=== PATIENT | male | born 1980 | race African-American/Black ===

== ENCOUNTER 2019-01-14 08:36 | Emergency (ER) | payer BC, OTHER ==
[2019-01-14 08:44] VITALS: PULSE 83; TEMP 98.4; BMI 25.1
--- NOTE | 2019-01-14 09:10 | PDOC ---
History of Present Illness - General History Source: Patient Exam Limitations: No Limitations <Afia Maddox - Last Filed: 01/14/19 09:51> <Kenrick Palomino - Last Filed: 01/14/19 14:18> - General Chief Complaint: Chest Pain Stated Complaint: CHEST PAIN Time Seen by Provider: 01/14/19 09:09 - History of Present Illness Initial Comments: 01/14/19 09:52 Patient is a 38 year old male with no significant past medical history who presents with chest pain, squeezing in character, lasting for the past 4 days, pleuritic, constant, 5/10, initially associated left neck and arm pain (now resolved). Patient notes his symptoms initially onset after smoking marijuana ( prior to 3 days ago smoked daily) and he has not not experienced similar episodes in the past, prompting his arrival to the emergency department. (Afia Maddox) Past History <Afia Maddox - Last Filed: 01/14/19 09:51> - Past Medical History COPD: No - Suicide/Smoking/Psychosocial Hx Smoking History: Former smoker Have you smoked in the past 12 months: No If you are a former smoker, when did you quit?: 2 years ago Information on smoking cessation initiated: No <Kenrick Palomino - Last Filed: 01/14/19 14:18> - Past Medical History Allergies/Adverse Reactions: Allergies Allergy/AdvReac Type Severity Reaction Status Date / Time No Known Allergies Allergy Verified 01/14/19 08:51 Home Medications: Ambulatory Orders NK [No Known Home Medication] 01/14/19 Review of Systems - Review of Systems Able to Perform ROS?: Yes All Other Systems: Reviewed and Negative <Afia Maddox - Last Filed: 01/14/19 09:51> <Kenrick Palomino - Last Filed: 01/14/19 14:18> - Review of Systems Comments:: 01/14/19 09:52 CONSTITUTIONAL: No fever, no chills, no fatigue EYES: No visual changes ENT: No ear pain, no sore throat CARDIOVASCULAR: +Chest pain. No palpitations RESPIRATORY: No cough, no SOB GI: No abdominal pain, no nausea, no vomiting, no constipation, no diarrhea GENITOURINARY: No dysuria, no frequency, no hematuria MUSKULOSKELETAL: No back pain, no joint pain, no myalgias SKIN: No rash NEURO: No headache (Afia Maddox) *Physical Exam <Afia Maddox - Last Filed: 01/14/19 09:51> <Kenrick Palomino - Last Filed: 01/14/19 14:18> - Vital Signs Last Vital Signs Temp Pulse Resp BP Pulse Ox 98.4 F 83 18 140/80 98 01/14/19 08:43 01/14/19 08:43 01/14/19 08:43 01/14/19 08:43 01/14/19 08:43 - Physical Exam Comments: 01/14/19 09:52 CONSTITUTIONAL: Well-appearing; well-nourished; in no apparent distress HEAD: Normocephalic; atraumatic EYES: PERRL; EOM intact ENMT: External appears normal; normal oropharynx NECK: Supple; non-tender; no cervical lymphadenopathy CARD: Normal S1, S2; no murmurs, rubs, or gallops RESP: Normal chest excursion with respiration; breath sounds clear and equal bilaterally; no wheezes, rhonchi, or rales ABD: Soft, non-distended; non-tender; no palpable organomegaly, no palpable hernias EXT: Normal ROM in all four extremities; non-tender to palpation; distal pulses intact SKIN: Warm, dry, no rash NEURO: No focal neurological deficiencies. (Afia Maddox) Heart Score/ECG Review - History History: Slightly suspicious - Electrocardiogram EKG: Normal - Age Age: </= 45 - Risk Factors Risk Factors Heart Score: No Hx Hypercholesterolemia, No Hx Hypertension, No Hx Diabetes, No Smoking History, No Positive family hx of cardiac disease, No Hx Obesity Based on the list above the patient has:: No risk factors known - Troponin Troponin: </= normal limit - Score Heart Score - Total: 0 <Kenrick Palomino - Last Filed: 01/14/19 14:18> ED Treatment Course - LABORATORY CBC & Chemistry Diagram: 01/14/19 09:45 01/14/19 09:45 <Kenrick Palomino - Last Filed: 01/14/19 14:18> - ADDITIONAL ORDERS Additional order review: Laboratory Results 01/14/19 01/14/19 01/14/19 12:51 09:45 09:45 D-Dimer 443 Sodium 139 Potassium 4.1 Chloride 108 H Carbon Dioxide 23 Anion Gap 7 L BUN 9 Creatinine 0.9 Creat Clearance w eGFR 93.46 Random Glucose 76 Calcium 8.7 Total Bilirubin 0.4 AST 21 ALT 14 Alkaline Phosphatase 73 Creatine Kinase 325 H 368 H Creatine Kinase Index 0.5 0.5 CK-MB (CK-2) 1.8 1.9 Troponin I < 0.02 < 0.02 Total Protein 7.7 Albumin 3.9 01/14/19 09:45 RBC 4.56 MCV 88.9 MCHC 34.3 RDW 13.8 MPV 9.4 Neutrophils % 60.7 Lymphocytes % 27.3 Monocytes % 9.8 Eosinophils % 1.6 Basophils % 0.6 - RADIOLOGY Radiology Studies Ordered: Category Date Time Status CHEST X-RAY PORTABLE* [RAD] Stat Radiology 01/14/19 09:36 Completed Medical Decision Making <Afia Maddox - Last Filed: 01/14/19 09:51> <Kenrick Palomino - Last Filed: 01/14/19 14:18> - Medical Decision Making 01/14/19 11:56 Patient is a 38-year-old male with no previous medical history who presents to the ER with atraumatic left-sided chest pain for the past several days. Patient' s vital signs are noted. EKG reveals no evidence of acute ischemia, LVH or strain. Chest x-ray reveals no evidence of infiltrate or effusion. There is no evidence of pneumothorax. First set of cardiac enzymes within normal limit. D- dimer is negative. Dissection is highly unlikely. Will obtain second set of cardiac enzymes and repeat EKG. Given patient's heart score of 0, if negative, will discharge with outpatient follow-up. Patient reports that his pain is completely resolved without any intervention at this time. 01/14/19 14:16 Patient reassessed. Patient remains asymptomatic and pain-free. Second set of cardiac enzymes shows a decreasing CPK and negative troponin. Repeat EKG shows a T-wave and V2 and V3 which has a slow upstroke and is not consistent with hyperacute T-wave. I do not suspect ACS or PE at this time. Patient's heart score remained 0. Will discharge with outpatient cardiology follow-up. ( Kenrick Palomino) *DC/Admit/Observation/Transfer <Afia Maddox - Last Filed: 01/14/19 09:51> <Kenrick Palomino - Last Filed: 01/14/19 14:18> Diagnosis at time of Disposition: Chest pain Qualifiers: Chest pain type: unspecified Qualified Code(s): R07.9 - Chest pain, unspecified - Discharge Dispostion Disposition: HOME Condition at time of disposition: Stable - Referrals Referrals: Gen Nunez MD [Staff Physician] - - Patient Instructions Printed Discharge Instructions: DI for Atypical Chest Pain - Attestations Scribe Attestion: 01/14/19 09:52 Documentation prepared by Afia Maddox, acting as medical assembly for Kenrick Palomino MD. (Afia Maddox)
[2019-01-14 10:35] LABS: BASO % 0.6 % (0-2.0); EOS % 1.6 % (0-4.5); HEMATOCRIT 40.5 % (35.4-49); HEMOGLOBIN 13.9 GM/dL (11.7-16.9); LYMPH % 27.3 % (8-40); MCH 30.5 pg (25.7-33.7); MCHC 34.3 g/dl (32.0-35.9); MEAN CELL VOLUME 88.9 fl (80-96); MEAN PLT VOLUME 9.4 fl (7.5-11.1); MONO % 9.8 % (3.8-10.2); NEUT % 60.7 % (42.8-82.8); PLATELET COUNT 210 K/MM3 (134-434); RBC 4.56 M/mm3 (4.00-5.60); RDW 13.8 % (11.9-15.9); WHITE BLOOD COUNT 7.2 K/mm3 (4.0-10.0)
[2019-01-14 11:07] LABS: ALBUMIN 3.9 g/dl (3.4-5.0); ALK PHOS 73 U/L (45-117); ANION GAP 7 MMOL/L (8-16); BILIRUBIN,TOTAL 0.4 mg/dL (0.2-1); BLOOD UREA NITROGEN 9 mg/dL (7-18); CALCIUM 8.7 mg/dL (8.5-10.1); CHLORIDE 108 mmol/L (98-107); CO2 23 mmol/L (21-32); CREATININE 0.9 mg/dL (0.55-1.3); GLUCOSE,RANDOM 76 mg/dL (74-106); POTASSIUM 4.1 mmol/L (3.5-5.1); SGOT/AST 21 U/L (15-37); SGPT/ALT 14 U/L (13-61); SODIUM 139 mmol/L (136-145); TOT PROT 7.7 g/dl (6.4-8.2)
--- NOTE | 2019-01-14 11:32 | EKG ---
Test Reason : Blood Pressure : / mmHG Vent. Rate : 076 BPM Atrial Rate : 076 BPM P-R Int : 174 ms QRS Dur : 084 ms QT Int : 354 ms P-R-T Axes : 045 053 034 degrees QTc Int : 398 ms NORMAL SINUS RHYTHM NORMAL ECG NO PREVIOUS ECGS AVAILABLE Confirmed by LETY ANDRADE, RICKY ([id number]) on 01/14/2019 11:31:46 AM Referred By: Confirmed By:RICKY DAVIDSON MD
[2019-01-14 14:27] VITALS: BP 108/62
--- NOTE | 2019-01-15 11:49 | EKG ---
Test Reason : Blood Pressure : / mmHG Vent. Rate : 062 BPM Atrial Rate : 062 BPM P-R Int : 152 ms QRS Dur : 088 ms QT Int : 388 ms P-R-T Axes : 015 062 038 degrees QTc Int : 393 ms NORMAL SINUS RHYTHM NONSPECIFIC ST AND T WAVE ABNORMALITY ABNORMAL ECG WHEN COMPARED WITH ECG OF 14-JAN-2019 08:35, NONSPECIFIC T WAVE ABNORMALITY NOW EVIDENT IN LATERAL LEADS Confirmed by ISAAK ANDRADE, FLORES ([id number]) on 01/15/2019 11:48:36 AM Referred By: Confirmed By:FLORES MULLIGAN MD
== END 2019-01-14 14:46 | disposition home or self-care (01) ==
LOC: JER 08:36
DX: R07.9 Chest pain, unspecified (principal); Z87.891 Personal history of nicotine dependence
CPT/HCPCS: 36415; 71045-TC-FY; 80053; 82550; 82553; 84484; 85025; 85379; 93005; 93010; 99284-25